=== PATIENT | male | born 1985 | race Caucasian/White ===

== ENCOUNTER 2021-08-24 21:12 | Emergency (ER) | payer OTHER, SELFPAY ==
[2021-08-24 21:23] VITALS: BP 123/86; PULSE 112; RESP 16; TEMP 36.2; O2SAT 99
--- NOTE | 2021-08-24 21:38 | ED.EAR ---
HPI - Ear Problem General Chief complaint: Ear/Nose/Throat Problem Stated complaint: Bug in RT ear Time Seen by Provider: 08/24/21 21:31 History of Present Illness HPI Narrative: Patient is a 36-year-old gentleman who had a bug flying his right ear tonight. Patient was able to squash the bug up against the tympanic membrane is no longer moving. He has noticed small amount of blood in his ear canal. He has no change in his hearing his right ear. He otherwise feels well. Related Data Allergies Allergy/AdvReac Type Severity Reaction Status Date / Time No Known Drug Allergies Allergy Verified 08/24/21 21:20 Review of Systems Status of ROS: Reports: 10 or more systems reviewed and unremarkable except as noted in History and below PFSH PFS Social History Smoking Status: Unknown if ever smoked Do you use any of these nicotine containing products: None Second hand tobacco smoke exposure: No How often do you have a drink containing alcohol: monthly or less How many standard drinks containing alcohol do you have on a typical day: 1 or 2 How often do you have six or more drinks on one occasion: Never AUDIT-C Alcohol total score: 1 Non-prescribed substance use: denies use service: Yes Exam Narrative: Exam Narrative: EXAM GENERAL: Patient appears comfortable and well. EYES: No scleral icterus. ENT: There is some small bleeding noted the right external ear canal with what appears to be a bug smashed against the tympanic membrane. THYROID: no thyroid nodules or thyromegaly. LYMPH: No supraclavicular or cervical lymphadenopathy. SKIN: Visible skin seen during exam normal or with benign process only. EXT: No dependent lower extremity pedal edema. HEART: Regular rate and rhythm with no murmurs, rubs, or gallops. LUNGS: Clear to auscultation bilaterally with no crackles or wheezes. ABD: Soft, non tender, non distended. PSYCH: Good eye contact, speech is not pressured. Const: Vital Signs, click to edit/add: Vital Signs - 24 hr 08/24/21 21:23 Temperature 97.1 F L Pulse Rate [Right Pulse Oximeter] 112 H Respiratory Rate 16 Blood Pressure [Le ft Upper Arm] 123/86 Pulse Oximetry 99 Course Course Hospital Course: Right ear was aggressively irrigated. Bug successfully removed. Vital Signs Vital signs: Initial Vital Signs Temperature 97.1 F L 08/24/21 21:23 Temperature Source Temporal Artery Scan 08/24/21 21:23 Pulse Rate 112 H 08/24/21 21:23 Pulse Rhythm 08/24/21 21:23 Pulse Strength 0+ Absent 08/24/21 21:23 Respiratory Rate 16 08/24/21 21:23 Blood Pressure 123/86 08/24/21 21:23 Blood Pressure Mean 98 08/24/21 21:23 Blood Pressure Position Sitting 08/24/21 21:23 Pulse Oximetry 99 08/24/21 21:23 Oxygen Delivery Method 08/24/21 21:23 Vital Signs Temperature 97.1 F L 08/24/21 21:23 Pulse Rate 112 H 08/24/21 21:23 Respiratory Rate 16 08/24/21 21:23 Blood Pressure 123/86 08/24/21 21:23 Pulse Oximetry 99 08/24/21 21:23 Temperature 97.1 F L 08/24/21 21:23 Pulse Rate 112 H 08/24/21 21:23 Respiratory Rate 16 08/24/21 21:23 Blood Pressure 123/86 08/24/21 21:23 Pulse Oximetry 99 08/24/21 21:23 Discharge Plan Discharge Clinical Impression: Foreign body in ear Instructions: Ear Foreign Body (ED) Activity Level: No Restrictions Discharge Diet: Regular
--- NOTE | 2021-08-24 21:54 | ED.NURSE ---
bug flushed out with device. informed.
== END 2021-08-24 22:01 ==
LOC: ED 21:44
PROVIDERS: Emergency Provider Internal Medicine
DX: T16.1XXA Foreign body in right ear, initial encounter (principal)
CPT/HCPCS: 69200; 99282; 99283